=== PATIENT | male | born 1995 | race Two or more races ===

== ENCOUNTER 2016-11-08 09:26 | Emergency (ER) | payer OTHER ==
[2016-11-08 09:33] VITALS: BP 146/76
--- NOTE | 2016-11-08 10:10 | ED Physician Documentation ---
History of Present Illness - Stated complaint Stated Complaint: MALE - Chief complaint Chief Complaint: General - Additonal information Additional information: hx from pt hx from pt 21 AD male mild rectal discomfort and rectal bleeding with BM and exertion for a month has no been able to get appt at [facility] for same no fever abd pain NVD Review of Systems Constitutional: denies: Fever Cardiac: denies: Chest pain / pressure Respiratory: denies: Cough GI: denies: Abdominal Pain, Nausea, Vomiting, Diarrhea, Bloody / black stool ( but rectal bleeding) PD PAST MEDICAL HISTORY - Past Medical History Past Medical History: No - Past Surgical History Past Surgical History: No - Present Medications Home Medications: Ambulatory Orders Medication Instructions Recorded Confirmed Hydrocortisone Acetate [Anucort-Hc] 25 mg RC BID #14 supp.rect 11/08/16 - Allergies Allergies/Adverse Reactions: Allergies Allergy/AdvReac Type Severity Reaction Status Date / Time No Known Drug Allergies Allergy Verified 11/08/16 09:33 - Social History Does the pt smoke?: No Smoking Status: Never smoker - Immunizations Immunizations are current?: Yes PD ED PE NORMAL - Vitals Vital signs reviewed: Yes - Cardiac Cardiac: RRR - Respiratory Respiratory: Clear bilaterally - Abdomen Abdomen: Non tender - Rectal Rectal: Other (no external lesions, small old hemorrhoidal tag, no fissure, on CAROL no mass but a soft non tender slight swelling likey an interbnal hemorrhoid , no blood or pus noted ) Results - Vitals Vitals: Vital Signs - 24 hr 11/08/16 09:29 Temperature 36.5 C Heart Rate 47 L Respiratory 18 Rate Blood Pressure 146/76 H O2 Saturation 100 Oxygen O2 Source Room air Departure - Departure Disposition: 01 Home, Self Care Clinical Impression: Internal hemorrhoid Condition: Good Instructions: ANUSOL-HC Suppositories, ED Hemorrhoids Prescriptions: Hydrocortisone Acetate [Anucort-Hc] 25 mg RC BID #14 supp.rect Comments: I suspect the bleeding is due to internal hemorrhoids. There are no external hemorrhoids, fissures, rectal tumors or abscess on exam Use the anusol HC suppositoris I prescribed And follow up at [facility] with Dr Hastings at 820 AM [facility] He[facility]she will arrange for a surgical referral for further evaluation and possible banding of the hemorrhoid to stop the bleeding Please have [facility] recheck your blood pressure as well, it was high today Forms: Activity restrictions
== END 2016-11-08 10:37 | disposition home or self-care (01) ==
LOC: ED 09:26
DX: K64.8 Other hemorrhoids (principal); R03.0 Elevated blood-pressure reading, without diagnosis of hypertension
CPT/HCPCS: 99283